=== PATIENT | female | born 1945 | race Caucasian/White ===

== ENCOUNTER 2019-03-02 23:41 | Emergency (ER) | payer MEDICARE ==
--- NOTE | 2019-03-03 02:47 | ER Document Report ---
ED GI/ - General Chief Complaint: Abdominal Pain >50 Stated Complaint: ABDOMINAL PAIN RIGHT SIDE Time Seen by Provider: 03/03/19 02:08 Notes: Patient is a 73-year-old female that comes emergency department chief complaint of right-sided abdominal pain. She states she is actually felt pain over here for some weeks, it seemed to resolve after she was started on Prilosec by her primary care, however tonight she felt sharp pain in the right side of her abdomen that made her concerned. Pain radiating around to her flank slightly. She states it hurts when she moves now but if she is lying still she is comfortable. She denies pain in her chest, nausea/vomiting, fever/chills and she reports a normal bowel movement earlier today. She has had a cholecystectomy, has a history of GERD, hypertension, hyperlipidemia, and former smoker. She denies medical history otherwise. TRAVEL OUTSIDE OF THE [place] IN LAST 30 DAYS: No - Related Data Allergies/Adverse Reactions: Sulfa (Sulfonamide Antibiotics) Allergy (Verified 03/03/19 04:51) Past Medical History - General Information source: Patient - Social History Smoking Status: Former Smoker Frequency of alcohol use: None Drug Abuse: None Lives with: Family Family History: Reviewed & Not Pertinent - Past Medical History Cardiac Medical History: Reports: Hx Hypercholesterolemia, Hx Hypertension GI Medical History: Reports: Hx Gastroesophageal Reflux Disease Past Surgical History: Reports: Hx Cholecystectomy - Immunizations Immunizations up to date: Yes Hx Diphtheria, Pertussis, Tetanus Vaccination: Yes Review of Systems - Review of Systems Constitutional: No symptoms reported EENT: No symptoms reported Cardiovascular: No symptoms reported Respiratory: No symptoms reported Gastrointestinal: See HPI Genitourinary: No symptoms reported Female Genitourinary: No symptoms reported Musculoskeletal: No symptoms reported Skin: No symptoms reported Hematologic/Lymphatic: No symptoms reported Neurological/Psychological: No symptoms reported Physical Exam - Vital signs Vitals: Temp Pulse Resp BP Pulse Ox 97.5 F 90 16 124/59 L 96 03/03/19 00:15 03/03/19 00:15 03/03/19 00:15 03/03/19 00:15 03/03/19 00:15 - Notes Notes: GENERAL: Alert, interacts well. No acute distress. HEAD: Normocephalic, atraumatic. EYES: Pupils equal, round, and reactive to light. Extraocular movements intact. ENT: Oral mucosa moist, tongue midline. Oropharynx unremarkable. Airway patent. LUNGS: Clear to auscultation bilaterally, no wheezes, rales, or rhonchi. No respiratory distress. HEART: Regular rate and rhythm. No murmur ABDOMEN: There is some mild mid to upper abdominal tenderness without guarding or rigidity. Bowel sounds present. GENITOURINARY: Deferred EXTREMITIES: Moves all 4 extremities spontaneously. No edema, normal radial and dorsalis pedis pulses bilaterally. No cyanosis. BACK: no cervical, thoracic, lumbar midline tenderness. No saddle anesthesia, normal distal neurovascular exam. Moves all extremities in full range of motion. NEUROLOGICAL: Alert and oriented x3. Normal speech. Cranial nerves II through XII grossly intact. PSYCH: Normal affect, normal mood. SKIN: Warm, dry, normal turgor. No rashes or lesions noted. Course - Re-evaluation Re-evalutation: Patient is somewhat youthful appearing for her age. She does have mild mid u pper abdominal tenderness on exam, no guarding. Vital signs unremarkable. Laboratory work-up including urinalysis and troponin are unremarkable. I did discuss with patient. Patient states she is been dealing with this for some time and tonight it became much worse, CAT scan will be performed because of her age. CAT scan showing small hiatal hernia, degenerative changes in the back, diverticulosis. No acute findings. We discussed this in detail with patient and significant other. After discussion of options and symptoms, patient will be treated for suspected inflammation of the upper abdomen tract, discussed treatment, recommendations, follow-up, and return precautions in detail. They state understanding and agreement. Stable at time of discharge. - Vital Signs Vital signs: Temp Pulse Resp BP Pulse Ox 97.5 F 90 18 128/67 H 99 03/03/19 00:15 03/03/19 00:15 03/03/19 06:04 03/03/19 06:04 03/03/19 06:04 - Laboratory Result Diagrams: 03/03/19 03:10 03/03/19 03:10 Laboratory results interpreted by me: 03/03/19 03:10 Carbon Dioxide 32 H BUN 25 H Glucose 129 H Total Protein 6.1 L Discharge - Discharge Clinical Impression: Nausea Abdominal pain Qualifiers: Abdominal location: generalized Qualified Code(s): R10.84 - Generalized abdominal pain Condition: Stable Disposition: HOME, SELF-CARE Additional Instructions: You do have a hiatal hernia on imaging, no acute concerning findings are noted on imaging however. Your laboratory work-up is reassuring. Your symptoms and evaluation are most suggestive of pain/inflammation coming from the upper gastrointestinal tract, probably the small intestine. I recommend the Carafate along with your higher dose of Prilosec, you can also take [id number] medication such as famotidine, Maalox, etc. for symptoms. Take Zofran if needed for nausea. Avoid caffeine, spicy food, NSAIDs, alcohol, smoking. Follow close with primary care for additional evaluation management gluten possible H. pylori testing or endoscopy. Return if you worsen including vomiting, vomiting blood, return or worsening pain, black stools, or any other concerning symptoms. Prescriptions: Ondansetron [Zofran Odt 4 mg Tablet] 1 - 2 tab PO Q4H PRN #15 tab.rapdis PRN Reason: For Nausea/Vomiting Sucralfate [Carafate 1 gm Tablet] 1 gm PO QID #20 tablet
[2019-03-03 03:26] LABS: APPEARANCE,URINE CLEAR; BILIRUBIN,URINE NEGATIVE (NEGATIVE); COLOR,URINE STRAW; GLUCOSE, URINE NEGATIVE (NEGATIVE); KETONES,URINE NEGATIVE (NEGATIVE); LEUKOCYTE ESTERASE,URINE NEGATIVE (NEGATIVE); NITRITE,URINE NEGATIVE (NEGATIVE); PROTEIN,URINE NEGATIVE (NEGATIVE); URINE SPECIFIC GRAVITY 1.008; UROBILINOGEN,URINE NEGATIVE mg/dL (<2.0)
[2019-03-03 03:26] LABS: ABSOLUTE BASOPHILS # (AUTO) 0.1 10^3/uL (0.0-0.2); ABSOLUTE EOSINOPHILS # (AUTO) 0.3 10^3/uL (0.0-0.6); ABSOLUTE LYMPHOCYTES (AUTO) 1.6 10^3/uL (0.5-4.7); ABSOLUTE MONOCYTES (AUTO) 0.9 10^3/uL (0.1-1.4); ABSOLUTE NEUT (AUTO) 5.7 10^3/uL (1.7-8.2); BASOPHILS % (AUTO) 0.8 % (0-2); EOSINOPHILS % (AUTO) 3.3 % (0-6); HEMATOCRIT 41.7 % (36.0-47.0); HEMOGLOBIN 13.9 g/dL (12.0-15.5); LYMPHOCYTES % (AUTO) 18.5 % (13-45); MEAN CORPUSCULAR HEMOGLOBIN 31.8 pg (27.0-33.4); MEAN CORPUSCULAR HGB CONC 33.3 g/dL (32.0-36.0); MEAN CORPUSCULAR VOLUME 96 fl (80-97); MONOCYTES % (AUTO) 10.3 % (3-13); PLATELET COUNT 185 10^3/uL (150-450); RED BLOOD COUNT 4.36 10^6/uL (3.72-5.28); RED CELL DISTRIBUTION WIDTH 13.1 % (11.5-14.0); SEGMENTED NEUTROPHILS % (AUTO) 67.1 % (42-78); TOTAL CELLS COUNTED % (AUTO) 100 %; WHITE BLOOD COUNT 8.5 10^3/uL (4.0-10.5)
[2019-03-03 03:43] LABS: ALANINE AMINOTRANSFERASE 26 U/L (9-52); ALBUMIN 3.7 g/dL (3.5-5.0); ALKALINE PHOSPHATASE 76 U/L (38-126); ASPARTATE AMINO TRANSFERASE 28 U/L (14-36); BILIRUBIN,DIRECT 0.2 mg/dL (0.0-0.4); BILIRUBIN,TOTAL 0.5 mg/dL (0.2-1.3); BLOOD UREA NITROGEN 25 mg/dL (7-20); CALCIUM 9.2 mg/dL (8.4-10.2); CARBON DIOXIDE 32 mmol/L (22-30); GLUCOSE 129 mg/dL (75-110); LIPASE 172.7 U/L (23-300); POTASSIUM 3.8 mmol/L (3.6-5.0); TOTAL PROTEIN 6.1 g/dL (6.3-8.2)
[2019-03-03 03:49] LABS: CHLORIDE 104 mmol/L (98-107); SODIUM 141.7 mmol/L (137-145)
[2019-03-03 03:51] LABS: ANION GAP 6 (5-19)
--- NOTE | 2019-03-03 06:37 | RADIOLOGY REPORT (SQ) ---
EXAM DESCRIPTION: CT ABDOMEN PELVIS WITH IV CONTRAST COMPLETED DATE/TME: 03/03/2019 00:00 CLINICAL HISTORY: 73 years, Female, right sided abd pain COMPARISON: None. TECHNIQUE: Axial CT images of the abdomen and pelvis were obtained after the administration of IV and oral contrast. Sagittal and coronal reformats were performed. DL [id number] Images stored on PACS. All CT scanners at this facility use dose modulation, iterative reconstruction, and/or weight based dosing when appropriate to reduce radiation dose to as low as reasonably achievable (ALARA). [facility]: Dose Right [facility]: CareDose [facility]: Dose Right [facility]: Teradose 4D [facility]: [employer] LIMITATIONS: None. FINDINGS: The lung bases are clear. Cholecystectomy. The liver, pancreas, spleen, and adrenal glands appear unremarkable. There is a 4 cm left renal cyst. No evidence of hydronephrosis or hydroureter bilaterally. There are atherosclerotic calcifications of the abdominal aorta. There is no lymphadenopathy. There is no intraperitoneal free air or fluid. There is a small hiatal hernia. The small bowel is unremarkable. The appendix is not uniquely identified, however there are no pericecal inflammatory changes. Diverticulosis without evidence of diverticulitis. The uterus, adnexa, and urinary bladder are unremarkable. There is mild multilevel spondylosis. IMPRESSION: No acute findings. Small hiatal hernia. Diverticulosis without evidence of diverticulitis. TECHNICAL DOCUMENTATION: Quality ID # [id number]: Final reports with documentation of one or more dose reduction techniques (e.g., Automated exposure control, adjustment of the mA and/or kV according to patient size, use of iterative reconstruction technique) copyright 2011 [employer]- All Rights Reserved
[2019-03-03] MEDS ORDERED: SUCRALFATE 1 GM TABLET PO ONE (06:55)
[2019-03-03 07:13] VITALS: BP 136/78
--- NOTE | 2019-03-03 14:00 | EKG REPORT ---
SEVERITY:- OTHERWISE NORMAL ECG - SINUS RHYTHM LEFT AXIS DEVIATION LOW VOLTAGE IN FRONTAL LEADS : Confirmed by: Claudia Sanchez 03-Mar-2019 14:00:25
== END 2019-03-03 07:14 | disposition home or self-care (01) ==
LOC: ER 23:41
DX: R10.84 Generalized abdominal pain (principal); R11.0 Nausea; E78.00 Pure hypercholesterolemia, unspecified; I10 Essential (primary) hypertension; Z90.49 Acquired absence of other specified parts of digestive tract; Z88.2 Allergy status to sulfonamides
CPT/HCPCS: 99284; 93005; 36415; 83690; 85025; 80053; 81001; 84484; 74177; 93010; A9270